=== PATIENT | female | born 1950 | race African-American/Black ===

== ENCOUNTER 2016-03-31 22:30 | Emergency (ER) | payer MEDICAID, OTHER ==
[~2016-03-31] VITALS: Ht 167.6 cm; Wt 72.6 kg
[2016-03-31 22:30] VITALS: BP 147/92
[2016-03-31 23:49] LABS: Basophils # (auto) 0.3 uL; Basophils % (auto) 3.8 % (0.0-2.0); DEFINITIVE VIEW TRANSMISSION; Eosinophils # (auto) 0 uL; Eosinophils % (auto) 0.5 % (0.0-7.0); Hemoglobin 14.8 g/dL (12.2-16.2); Lymphocytes # (auto) 3.6 uL; Mean Corpuscular Hemoglobin 23.6 pg (28.0-32.0); Mean Corpuscular Hgb Conc. 30.8 g/dL (32.0-36.0); Mean Corpuscular Volume 76.8 fL (80.0-100.0); Mean Platelet Volume 9.4 fL (7.4-10.4); Monocytes # (auto) 0.4 uL; Monocytes % (auto) 4.9 % (0.0-12.0); Neutrophils # (auto) 3.1 uL; Neutrophils % (auto) 41.8 % (37.0-80.0); Platelet Count (auto) 222 10^3/uL (140-450); Red Cell Distribution Width 13.7 % (11.6-16.0); SUSPECT VIEW TRANSMISSION; White Blood Cell 7.4 10^3/uL (4.4-10.8)
[2016-04-01 00:16] LABS: Lactic Acid 2.8 mmol/L (0.4-2.0)
[2016-04-01 00:40] LABS: REFLEX LACTIC ACID YES OR NO YES
== END 2016-03-31 23:53 | disposition left against medical advice (07) ==
LOC: ER 22:30
DX: R41.82 Altered mental status, unspecified (principal); Z53.21 Procedure and treatment not carried out due to patient leaving prior to being seen by health care provider
CPT/HCPCS: 36415; 83605; 85025; 85049; 93005